=== PATIENT | female | born 1965 | race Caucasian/White ===

== ENCOUNTER 2020-06-25 08:33 | Day surgery (SDC) | payer MEDICAID ==
[~2020-06-25] VITALS: Ht 165.1 cm; Wt 81.7 kg
[~2020-06-25 08:33] MED LIST: ALBU1.25 NEB; ALBU18HF INH; CETI10TA76 PO; CYCL5TAB PO; GABA600T7 PO; Ginseng PO; MULT-672 PO; OMEP40CA42 PO; ONDA4TAB13 SL; PROM12.57 PO; TERB250T14 PO; [UNRECOGNIZED DRUG - OTHER] PO; hycosamine PO
[2020-06-25] MEDS ORDERED: BUPIVACAINE/PF 0.25% ONE (09:19)
[2020-06-25] MEDS ORDERED: SILVER SULF. CRM 1% , 25GM ONE (09:19)
[2020-06-25] MEDS ORDERED: LIDOCAINE JELLY 2%, 30GM ONE (09:20)
[2020-06-25] MEDS ORDERED: EPINEPHRINE 1 MG/ML, 1ML ONE (09:20)
[2020-06-25] MEDS ORDERED: LACTATED RINGERS 1,000 ML IV SCH (09:30)
[2020-06-25] MEDS ORDERED: CEFOTETAN PMX 2GM/50ML 50 ML IVPB ONE (09:30)
[2020-06-25] MEDS ORDERED: CHLORHEXIDINE 15 ML UDC MM ONE (09:30)
[2020-06-25 09:32] VITALS: BP 118/82
[2020-06-25] MEDS ORDERED: MIDAZOLAM 1 MG/ML, 2ML ONE (09:35)
[2020-06-25] MEDS ORDERED: FENTANYL PF 100 MCG/2ML ONE ×2 (09:35→13:06)
[2020-06-25] MEDS ORDERED: SUCCINYLCHOLINE 20 MG/ML, 10ML ONE (09:38)
[2020-06-25] MEDS ORDERED: DEXAMETHASONE 4 MG/ML, 1ML ONE ×2 (09:38→12:02)
[2020-06-25] MEDS ORDERED: PROPOFOL 10 MG/ML, 20ML ONE ×2 (09:38→12:02)
[2020-06-25] MEDS ORDERED: NEOSTIGMINE 1 MG/ML, 10ML ONE (09:38)
[2020-06-25] MEDS ORDERED: ONDANSETRON 2MG/ML, 2ML ONE ×2 (09:38→12:02)
[2020-06-25] MEDS ORDERED: GLYCOPYRROLATE 0.2MG/1ML, 5ML ONE (09:38)
[2020-06-25] MEDS ORDERED: CEFAZOLIN 1,000 MG ONE ×2 (09:38→12:02)
[2020-06-25] MEDS ORDERED: ROCURONIUM 10MG/ML,5ML ONE (09:38)
[2020-06-25] MEDS ORDERED: OXYcodone 5 MG/5 ML ORAL.SOL UDC PO PRN (12:00)
[2020-06-25] MEDS ORDERED: ONDANSETRON 2MG/ML, 2ML IVPush PRN (12:00)
[2020-06-25] MEDS ORDERED: FENTANYL PF 100 MCG/2ML IV PRN (12:00)
[2020-06-25] MEDS ORDERED: PROMETHAZINE 25 MG/ML, 1ML IVPush PRN (12:00)
[2020-06-25] MEDS ORDERED: HYDROmorphone 1 MG/ML, 1ML INJ IVPush PRN (12:00)
[2020-06-25] MEDS ORDERED: HYDROcodone/APAP 7.5-325MG/15ML UDC PO PRN (12:00)
[2020-06-25] MEDS ORDERED: ACETAMINOPHEN 650 MG/20.3 ML UDC ONE (13:04)
[2020-06-25] MEDS ORDERED: OXYcodone 5 MG/5 ML ORAL.SOL UDC ONE (13:07)
[2020-06-25] MEDS ORDERED: ACETAMINOPHEN 325 MG TABLET PO PRN (13:30)
== END 2020-06-25 14:20 | disposition home or self-care (01) ==
LOC: OUT 08:33 → MERGE 10:30 → OUT 14:20
PROVIDERS: ATTEND Specialist
DX: D07.1 Carcinoma in situ of vulva (principal); J45.909 Unspecified asthma, uncomplicated; K21.9 Gastro-esophageal reflux disease without esophagitis; M79.7 Fibromyalgia; F31.9 Bipolar disorder, unspecified; F17.200 Nicotine dependence, unspecified, uncomplicated; Z79.1 Long term (current) use of non-steroidal anti-inflammatories (NSAID); Z79.899 Other long term (current) drug therapy; Z88.0 Allergy status to penicillin; Z91.011 Allergy to milk products; Z90.710 Acquired absence of both cervix and uterus; Z98.890 Other specified postprocedural states
CPT/HCPCS: 11622; 12041; 36415; 86850; 86900; 86923; 88305; J0171; J0330; J0690; J1100; J2250; J2405; J2704; J2710; J3010; J7120; 71046; 93005